=== PATIENT | female | born 1985 | race Caucasian/White ===

== ENCOUNTER 2023-06-10 13:46 | Emergency (ER) | payer BC, SELFPAY ==
[2023-06-10 13:47] VITALS: BMI 25.6
[2023-06-10 13:55] VITALS: BP 127/72
--- NOTE | 2023-06-10 15:40 | ED.GENMED ---
History of Present Illness
General
Chief Complaint: Allergic Reaction
Source: patient
Exam Limitations: none
Time Seen by Provider: 06/10/23 15:31
Nursing documentation reviewed up to this point in time: agreed with
Travel History
Have you had any contact with someone who has COVID-19?: No
Do you have any symptoms of coronavirus? Fever > 100 degrees, chills, cough, shortness of breath, sore throat, loss of taste or smell, muscle aches, or headache?: No
History of Present Illness
History of Present Illness:
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 Patient was eating [place] food and believes that she may have had cross-contamination around 12:30 PM. She felt
itchy, had itchy tongue felt like she had a hairy tongue and throat tightness. She did feel little short of breath and had some palpitations but did not develop hives. She took an Belkys which did not relieve her symptoms and give her some an
EpiPen at 1 PM and called 911. She reports EMS gave her Benadryl but she feels that infiltrated and prior to my exam nurse removed that IV. Patient continues to feel a little itchiness in her tongue is feeling better then she did.
Past History
Past History
ED Past Medical History: Other
ED Past Surgical History:
Social History
Tobacco: Non-smoker
Alcohol: None
Drug: None
Personal:
Living: with family
Review of Systems
Review of Systems
Allergies reviewed?: Yes
All Other Systems: ROS reviewed and negative except as documented in HPI and ROS
Constitutional: Reports no symptoms; Denies fever, fatigue or chills
EENT: Reports other (itchy tongue throat felt tight )
Respiratory: Reports trouble breathing
Cardiac: Reports no symptoms
ABD/GI: Reports no symptoms; Denies abdominal pain, nausea or vomiting
: Reports no symptoms
Musculoskeletal: Reports no symptoms
Skin: Reports itching; Denies rash
Neurological: Reports no symptoms
Psychiatric: Reports no symptoms
Phy Exam
General Physical Exam
General Presentation: no apparent distress
General age: appears stated age
General Skin: warm and dry
General Habitus: normal
General Mental: alert
General Hydration: appears well hydrated
ENT Exam
ENT Exam: EOMI, neck supple and other (Airway patent no swelling to tongue no drooling tolerating secretions well)
Cardiovascular Exam
Cardiovascular Exam: regular rate/rhythm, no murmur and normal peripheral pulses
Pulmonary Exam
Pulmonary Exam: lungs clear and no respiratory distress
Neurological Exam
Neurological Exam: alert and oriented x3
Musculoskeletal Exam
Musculoskeletal Exam: full ROM
Skin Exam
Skin Exam: normal color and warm/dry
Psychiatric Exam
Psychiatric Exam: normal mood/affect
Course
Orders/Labs/Results
Orders:
Orders
06/10/23 15:36
Diphenhydramine [Benadryl] 25 mg IV NOW STA
06/10/23 15:39
0.9% Sodium Chloride 1000 ml [Nss] 1,000 ml IV BOLUS
Dexamethasone Sod Phosphate [Decadron] 10 mg IV NOW STA
Famotidine [Pepcid] 20 mg IV NOW STA
Vital Signs
Initial and Last Documented VS:
Initial Vital Signs
Temp Pulse Resp BP Pulse Ox
98.3 F 121 22 127/72 100
06/10/23 13:55 06/10/23 13:55 06/10/23 13:55 06/10/23 13:55 06/10/23 13:55
Last Documented Vital Signs
Temp Pulse Resp BP Pulse Ox
98.3 F 89 18 108/89 98
06/10/23 13:55 06/10/23 16:53 06/10/23 16:53 06/10/23 16:53 06/10/23 16:53
MDM/Problems Addressed
Differential Diagnosis Includes:
Not limited to allergic reaction ;anaphylaxis
MDM/Problems Addressed:
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 She gave herself EpiPen call 911 and was treated with Benadryl though she thought the Benadryl infiltrated the IV. Patient was given additional
Benadryl here although symptoms were improving on my exam she was in no acute distress no rash or hives lungs are clear no wheezing no throat swelling tongue secretions well. Patient was given a dose of steroids here along with Benadryl and Pepcid
monitored and no worsening of symptoms. She feels that all of her symptoms have improved and she is ready for discharge. I did send an additional EpiPen prescription to patient's pharmacy along with prednisone for the next 40
*Pulse Oximetry
Patient hypoxic: no
*Critical Care Note
Total Time (30-74mins, 75-104mins- exclusive of procedures): Not Applicable
ED Attending Note
-
Portions of this chart may have been created with voice recognition software.� Occasional wrong word or��sound alike� substitutions may have occurred due to the inherent limitations of voice recognition software.
Discharge Plan
Departure
Patient Disposition: Home (Routine Discharge)
Date of Disposition: 06/10/23
Time of Disposition: 17:51
Patient with high blood pressure during this ER visit?: No
Condition: Fair
Covid-19: Not Applicable
Discharge Problem:
Allergic reaction
Instructions: Allergic Reaction ED
Prescriptions:
New
prednisone 20 mg tablet
40 mg PO DAILY Qty: 8 0RF
epinephrine [EpiPen] 0.3 mg/0.3 mL auto-injector
0.3 mg IM .STAT PRN (Reason: anaphylaxis) Qty: 1 0RF
No Action
sertraline 50 MG tablet
50 mg PO DAILY
[facility] [] 1 EACH tablet
1 ea PO DAILY
metoprolol tartrate 12.5 MG tablet
12.5 mg PO BID Qty: 60 3RF
Rx Instructions:
Hold for SPB < 90mmHg
Vitamin D 5,000 Iu
1 tab PO DAILY
acetaminophen 325 mg Tablet
650 mg PO Q4HPRN PRN (Reason: mild pain) Qty: 30 0RF
ibuprofen 600 mg Tablet
600 mg PO Q4HPRN PRN (Reason: cramps) Qty: 30 0RF
epinephrine [EpiPen 2-Aldair] 0.3 mg/0.3 mL auto-injector
0.3 mg IM ONCE PRN (Reason: anaphylaxis) Qty: 2 0RF
epinephrine 0.3 mg/0.3 mL auto-injector
0.3 mg IM ONCE PRN (Reason: anaphylaxis) Qty: 2 0RF
prednisone 50 mg tablet
50 mg PO DAILY Qty: 4 0RF
Referrals:
Hina Johnson DO [Family Provider] -
Activity Restrictions/Additional Instructions:
A new prescription for EpiPen's were sent to your pharmacy take as directed as needed. Also a prescription for steroids was sent in addition to take for the next 4 days. You may continue to take Benadryl every 4-6 hours if needed. Return if any
worsening of symptoms follow-up with family doctor in the next several days
Interventions
Interventions:
ED- Cardiac Assessment Last Done: 06/10/23 14:31
ED- Pulmonary Assessment Last Done: 06/10/23 14:32
ED-Skin Assessment Last Done: 06/10/23 14:32
Discharge Date and Time
Print Language: LEBANESE
[2023-06-10] MEDS: DECADRON 10 MG IV (15:51)
[2023-06-10] MEDS: NSS 1000 IV (15:52)
[2023-06-10] MEDS: PEPCID 20 MG IV (15:52)
[2023-06-10] MEDS: BENADRYL 25 MG IV (15:52)
[2023-06-10 16:53] VITALS: BP 108/89
== END 2023-06-10 17:58 | disposition home or self-care (01) ==
LOC: EMR 13:46
PROVIDERS: EMERGENCY PHYSICIAN Emergency Medicine; FAMILY PHYSICIAN Family Medicine
DX: T78.40XA Allergy, unspecified, initial encounter (principal); X58.XXXA Exposure to other specified factors, initial encounter; G90.A Postural orthostatic tachycardia syndrome [POTS]
CPT/HCPCS: 99282; 96374; 96375; 96361

== ENCOUNTER 2023-08-30 15:29 | Emergency (ER) | payer BC, SELFPAY ==
--- NOTE | 2023-08-30 15:50 | ED.GENMED ---
History of Present Illness
General
Chief Complaint: Allergic Reaction
Source: patient
Exam Limitations: none
Time Seen by Provider: 08/30/23 15:47
History of Present Illness
History of Present Illness:
38-year-old female history of allergic reaction/anaphylaxis. Presents with symptoms started suddenly while eating today. Symptoms were scratchy throat lightheadedness, brain fog. She took an Belkys and EpiPen. She feels moderately improved but
jittery.
Past History
Past History
ED Past Medical History: Other
ED Past Surgical History:
Social History
Tobacco: Non-smoker
Alcohol: None
Drug: None
Personal:
Living: with family
Review of Systems
Review of Systems
All Other Systems: Not applicable
Respiratory: Reports no symptoms
Cardiac: Reports no symptoms
Phy Exam
Physical Exam
Physical Exam:
GENERAL: Alert and oriented in no apparent distress. Generally weak
EYE: Orbits normal.
NECK: Supple
ENT: Pharynx without erythema no drooling no stridor. Airway clear. Speech normal.
CARDIAC: Tachycardic and regular
LUNGS: Clear breath sounds,normal
ABDOMEN: Soft, without focal tenderness or distention
NEUROLOGICAL: Alert and oriented , grossly non-focal
SKIN: Warm and dry, no rash or lesion, no discoloration, skin intact.
MUSCULOSKELETAL: No edema,no deformity.Good color
PSYCH: Normal and appropriate interaction.
Course
Orders/Labs/Results
Orders:
Orders
08/30/23 15:47
Cardiac Monitoring- Treatment ONCE
IV Insert/Care/Rem.- Treatment PRN
0.9% Sodium Chloride 1000 ml [Nss] 1,000 ml IV BOLUS
Dexamethasone Sod Phosphate [Decadron] 8 mg IV NOW STA
Diphenhydramine [Benadryl] 25 mg IV NOW STA
Famotidine [Pepcid] 20 mg IV NOW STA
Pulse Ox/cont/shift [RESP] Stat
Quantity: 1
Vital Signs
Initial and Last Documented VS:
Initial Vital Signs
Pulse Resp BP
111 21 121/63
08/30/23 16:00 08/30/23 16:00 08/30/23 16:00
Last Documented Vital Signs
Pulse Resp BP Pulse Ox
101 19 106/63 99
08/30/23 18:09 08/30/23 18:09 08/30/23 18:09 08/30/23 18:11
*Critical Care Note
Total Time (30-74mins, 75-104mins- exclusive of procedures): Not Applicable
Update Note
Update Note:
1630... Doing well. Stable.
1850... Patient doing well and would like to go home. Discharged to follow-up
ED Attending Note
-
Portions of this chart may have been created with voice recognition software.� Occasional wrong word or��sound alike� substitutions may have occurred due to the inherent limitations of voice recognition software.
Discharge Plan
Departure
Patient Disposition: Home (Routine Discharge)
Date of Disposition: 08/30/23
Time of Disposition: 18:53
Patient with high blood pressure during this ER visit?: No
Discharge Problem:
Acute allergic reaction
Instructions: Allergic Reaction ED
Prescriptions:
New
prednisone 50 mg tablet
50 mg PO DAILY Qty: 5 0RF
epinephrine [EpiPen] 0.3 mg/0.3 mL auto-injector
0.3 mg IM .STAT PRN (Reason: anaphylaxis) Qty: 1 0RF
No Action
sertraline 50 MG tablet
50 mg PO DAILY
PNV [facility]#95-ferrous fumarate-FA [] 1 EACH tablet
1 ea PO DAILY
metoprolol tartrate 12.5 MG tablet
12.5 mg PO BID Qty: 60 3RF
Rx Instructions:
Hold for SPB < 90mmHg
Vitamin D 5,000 Iu
1 tab PO DAILY
acetaminophen 325 mg Tablet
650 mg PO Q4HPRN PRN (Reason: mild pain) Qty: 30 0RF
ibuprofen 600 mg Tablet
600 mg PO Q4HPRN PRN (Reason: cramps) Qty: 30 0RF
epinephrine [EpiPen 2-Aldair] 0.3 mg/0.3 mL auto-injector
0.3 mg IM ONCE PRN (Reason: anaphylaxis) Qty: 2 0RF
epinephrine 0.3 mg/0.3 mL auto-injector
0.3 mg IM ONCE PRN (Reason: anaphylaxis) Qty: 2 0RF
prednisone 50 mg tablet
50 mg PO DAILY Qty: 4 0RF
prednisone 20 mg tablet
40 mg PO DAILY Qty: 8 0RF
epinephrine [EpiPen] 0.3 mg/0.3 mL auto-injector
0.3 mg IM .STAT PRN (Reason: anaphylaxis) Qty: 1 0RF
Referrals:
Hina Johnson, [Family Provider] - Follow up in 2-3 days
Activity Restrictions/Additional Instructions:
Follow-up closely with your drapery cutter and primary physician
As we discussed, take a Pepcid a day and a antihistamine a day
Interventions
Interventions:
*Risk Screen - Suicide Last Done: 08/30/23 16:10
*General Assessment Last Done: 08/30/23 16:10
*Neglect/Abuse Screening Last Done: 08/30/23 16:10
*ED COVID-19 Vaccine History Last Done: 08/30/23 16:10
ED- Cardiac Assessment Last Done: 08/30/23 16:10
ED- Pulmonary Assessment Last Done: 08/30/23 16:10
ED-Skin Assessment Last Done: 08/30/23 16:10
Discharge Date and Time
Print Language: [id number]
[2023-08-30 16:00] VITALS: BP 121/63
[2023-08-30] MEDS: NSS 1000 IV (16:04)
[2023-08-30] MEDS: DECADRON 8 MG IV (16:05)
[2023-08-30] MEDS: PEPCID 20 MG IV (16:05)
[2023-08-30] MEDS: BENADRYL 25 MG IV (16:05)
[2023-08-30 17:00] VITALS: BP 107/64
[2023-08-30 18:09] VITALS: BP 106/63
== END 2023-08-30 19:01 | disposition home or self-care (01) ==
LOC: EMR 15:29
PROVIDERS: EMERGENCY PHYSICIAN Emergency Medicine; FAMILY PHYSICIAN Family Medicine
DX: T78.40XA Allergy, unspecified, initial encounter (principal); X58.XXXA Exposure to other specified factors, initial encounter
CPT/HCPCS: 99284; 96374; 96375 ×2; 96361